=== PATIENT | female | born 1965 | race Two or more races ===

== ENCOUNTER 2025-07-11 18:48 | Emergency (ER) | payer MEDICAID ==
--- NOTE | 2025-07-11 19:36 | ED.PDOC ---
GI ASSESSMENT HPI Comments 59-year-old female came to ER for abdominal pain. Patient states she has been experiencing right-sided abdominal pain since last night, radiating to the back, associated with nausea. Denies any history of abdominal surgeries Chief Complaint: Abdominal Pain Time Seen by MD: 19:34 Reviewed Notes: Nurses Notes Allergies: Coded Allergies: NO KNOWN ALLERGIES (Unverified , 07/11/25) Home Meds Active Scripts Sulfamethoxazole W/Trimethopri (Bactrim Ds Tablet) 1 Tab Tb, 1 TAB PO BID for 7 Days, #14 TAB Prov:ALONA YE MD 07/11/25 Gabapentin (Gabapentin) 300 Mg Cap, 300 MG PO Q6HP PRN, #60 CAP Prov:ALONA YE MD 07/11/25 Ondansetron Odt 4MG Tab (ZOFRAN PO) 4 Mg Tb, 4 MG PO Q6HP PRN, #30 TAB ODT TAB-DISSOLVE IN MOUTH, THEN SWALLOW Prov:ALONA YE MD 07/11/25 Metformin Hydrochloride (Metformin Hcl) 1,000 Mg Tab, 1 TAB PO BID for 90 Days, #180 TAB 5 Refills Prov:ALONA YE MD 07/11/25 Information Source: Patient Mode of Arrival: Wheelchair Timing: Hours Duration: Intermittent Past Medical History PAST MEDICAL HISTORY: Denies Surgical History: Denies all surgeries REGISTERED DENTAL ASSISTANT History: Denies all REGISTERED DENTAL ASSISTANT Hx Family History Family History: Reviewed,noncontributory to illness Social History Smoker: Non-Smoker Alcohol: Denies ETOH Use Drugs: Denies Drug Use Lives In: Home Constitutional: denies: chills, diaphoresis, fatigue, fever, malaise, sweats, weakness, others EENTM: denies: blurred vision, double vision, ear bleeding, ear discharge, ear drainage, ear pain, ear ringing, eye pain, eye redness, hearing loss, mouth pain, mouth swelling, nasal discharge, nose bleeding, nose congestion, nose pain, photophobia, tearing, throat pain, throat swelling, voice changes, others Respiratory: denies: cough, hemoptysis, orthopnea, SOB at rest, shortness of breath, SOB with excertion, stridor, wheezing, others Cardiovascular: denies: chest pain, dizzy spells, diaphoresis, Dyspnea on exertion, edema, irregular heart beat, left arm pain, lightheadedness, palpitations, PND, syncope, others Gastrointestinal: reports: abdominal pain, nausea; denies: abdomen distended, blood streaked bowels, constipated, diarrhea, dysphagia, difficulty swallowing, hematemesis, melena, poor appetite, poor fluid intake, rectal bleeding, rectal pain, vomiting, others Genitourinary: denies: abnormal vagina bleeding, burning, dyspareunia, dysuria, flank pain, frequency, hematuria, incontinence, pain, , vagina discharge, urgency, others Neurological: denies: dizziness, fainting, headache, left sided numbness, left sided weakness, numbness, paresthesia, pre-existing deficit, right sided numbness, right sided weakness, seizure, speech problems, tingling, tremors, weakness, others Musculoskeletal: denies: back pain, gout, joint pain, joint swelling, muscle pain, muscle stiffness, neck pain, others Integumetry: denies: bruises, change in color, change in hair/nails, dryness, laceration, lesions, lumps, rash, wounds, others Allergic/Immunocompromised: denies: Difficulty Healing, Frequent Infections, Hives, Itching, others Hematologic/Lymphatic: denies: anemia, blood clots, easy bleeding, easy bruising, swollen glands, others Endocrine: denies: excessive hunger, excessive sweating, excessive thirst, excessive urination, flushing, intolerance to cold, intolerance to heat, unexplained weight gain, unexplained weight loss, others Psychiatric: denies: anxiety, bipolar disorder, depression, hopeless, panic disorder, schizophrenia, sleepless, suicidal, others Physical Exam General Appearance: No Apparent Distress, Normal HEENT: Normal ENT Inspection, Pharynx Normal, TMs Normal Neck: Full Range of Motion, Non-Tender, Normal, Normal Inspection Respiratory: Chest Non-Tender, Lungs Clear, No Accessory Muscle Use, No Respiratory Distress, Normal Breath Sounds Cardiovascular: No Edema, No JVD, No Murmur, No Gallop, Normal Peripheral Pulses, Regular Rate/Rhythm Breast Exam: Deferred Gastrointestinal: No Organomegaly, No Pulsatile Mass, Normal Bowel Sounds, RUQ, Soft, Tenderness Genitalia: Deferred Pelvic: Deferred Rectal: Deferred Extremities: No calf tenderness, Normal capillary refill, Normal inspection, Normal range of motion, Non-tender, No pedal edema Musculoskeletal : Apperance: Normal Neurologic: Alert, balance truing inspector II-XII nml as Tested, No Motor Deficits, Normal Affect, Normal Mood, No Sensory Deficits Cerebellar Function: Normal Reflexes: Normal Skin: Dry, Normal Color, Warm Lymphatic: No Adenopathy Was a procedure done? Was a procedure done?: No GI differential Dx Differential Diagnosis: Constipation, Diverticular disease, Gastritis/PUD, Gastroenteritis, Pancreatitis, UTI, Urolithiasis X-Ray, Labs, Meds, VS Vital Signs Date Time Temp Pulse Resp B/P (MAP) Pulse Ox O2 Delivery O2 Flow Rate FiO2 07/11/25 22:25 98.0 69 18 99/65 (76) 98 98.0 07/11/25 19:03 98 07/11/25 18:49 98.2 109 18 115/70 95 98.2 Lab Test 07/11/25 22:57 07/11/25 22:19 07/11/25 19:33 07/11/25 19:08 Range/Units Urine Color Colorless Yellow Urine Clarity Turbid H Clear Urine pH 5.5 5.0-9.0 Urine Specific [place] 1.025 1.001-1.035 Urine Protein Trace H Negative Urine Ketones Negative Negative Urine Blood 2+ H Negative /uL Urine Nitrite 2+ H Negative Urine Bilirubin Negative Negative Urine Urobilinogen Normal Negative mg/dL Urine Leukocyte Esterase 3+ Negative /uL Urine RBC 24 0 - 4 /hpf Urine WBC Clumps Present None Seen /hpf Urine Microscopic WBC 465 H 0-5 /HPF Urine Squamous Epithelial Cells Few <5 /hpf Urine Bacteria None seen None Seen /hpf Urine Yeast (Budding) Few None Seen /hpf Urine Glucose 4+ H Normal mg/dL POC Glucose 257 H 313 H 70-106 mg/dl White Blood Count 11.0 H 4.4-10.8 10^3/uL Red Blood Count 4.96 4.0-5.20 10^6/uL Hemoglobin 15.5 12.2-16.2 g/dL Hematocrit 44.8 36.0-46.0 % Mean Corpuscular Volume 90.3 80.0-100.0 fL Mean Corpuscular Hemoglobin 31.3 28.0-32.0 pg Mean Corpuscular Hemoglobin Concent 34.7 32.0-36.0 g/dL Red Cell Distribution Width 13.7 11.8-14.3 % Platelet Count 201 140-450 10^3/uL Mean Platelet Volume 8.9 6.9-10.8 fL Neutrophils (%) (Auto) 64.4 37.0-80.0 % Lymphocytes (%) (Auto) 24.5 10.0-50.0 % Monocytes (%) (Auto) 10.1 0.0-12.0 % Eosinophils (%) (Auto) 0.5 0.0-7.0 % Basophils (%) (Auto) 0.5 0.0-2.0 % Neutrophils # (Auto) 7.1 1.6-8.6 10 ^3/uL Lymphocytes # (Auto) 2.7 0.4-5.4 10 ^3/uL Monocytes # (Auto) 1.1 0-1.3 10 ^3/uL Eosinophils # (Auto) 0 0-0.8 10 ^3/uL Basophils # (Auto) 0.1 0-0.2 10 ^3/uL Nucleated Red Blood Cells 0.1 % Sodium Level 133 L 136-145 mmol/L Potassium Level 4.0 3.5-5.1 mmol/L Chloride Level 93 L 98-107 mmol/L Carbon Dioxide Level 27 20-31 mmol/L Anion Gap 13 5-15 Blood Urea Nitrogen 12 9-23 mg/dL Creatinine 0.80 0.550-1.02 mg/dL Glomerular Filtration Rate Calc 85 >90 mL/min BUN/Creatinine Ratio 15.0 10.0-20.0 Serum Glucose 291 H 74-106 mg/dL Calcium Level 9.1 8.7-10.4 mg/dL Total Bilirubin 0.5 0.2-1.0 mg/dL Aspartate Amino Transferase (AST) 18 13-40 U/L Alanine Aminotransferase (ALT) 29 7-40 U/L Alkaline Phosphatase 185 H 46-116 U/L Total Protein 7.3 5.7-8.2 g/dL Albumin 4.1 3.2-4.8 g/dL Lipase 28 12-53 U/L Current Medications Medications (Trade) Dose Ordered Sig/Roxi Route Start Time Stop Time Status Last Admin Insulin Human Regular (InsuLIN R) 2 units ONCE ONCE SC 07/11/25 21:30 07/11/25 21:32 DC 07/11/25 22:20 Procedure: XY ACUTE AB SERIES Exam Date: 07/11/2025 08:42 PM History: abd pain Comparison Study: None Technique: AP of the chest AP upright of the abdomen AP supine of the abdomen FINDINGS: No focal evidence of airspace disease. The cardiomediastinal silhouette is within normal limits. No acute osseous lesions. Nonobstructive bowel gas pattern noted. There is no evidence for pneumoperitoneum. No abnormal calcifications noted. 2 radiopaque foreign bodies over the left iliac bone correlate clinically. IMPRESSION: 1. Non-specific gas-filled loops of bowel. 2. 2 radiopaque foreign bodies of the lower left abdomen correlate clinically. 3. Chest x-ray supine film of the abdomen. A true abdominal series includes upright abdomen. This may be replace with the lateral decubitus film of the abdomen. Time of 1ST Reevaluation: 19:32 Reevaluation 1ST: Unchanged Patient Education/Counseling: Diagnosis, Treatment Family Education/Counseling: Diagnosis, Treatment SEPSIS Sepsis Screen Date sepsis recognized/suspect: Jul 11, 2025 Time Sepsis recognized/suspect: 1849 Recent Procedure: No On Antibiotic Therapy: No Respiratory Rate >20: No Heart Rate >90: Yes Temp<36 C (96.8 F) or >38.3 C: No SBP <90 or MAP <65 mmHG: No New Acute Mental Status Change: No Is the patient on CPAP, BIPAP,: No Physician Orders Electrocardigram (07/11/25 19:11) Acute Ab Series (07/11/25 19:27) Vital Signs Date Time Temp Pulse Resp B/P (MAP) Pulse Ox O2 Delivery O2 Flow Rate FiO2 07/11/25 22:25 98.0 69 18 99/65 (76) 98 98.0 07/11/25 19:03 98 07/11/25 18:49 98.2 109 18 115/70 95 98.2 Laboratory Tests Test 07/11/25 19:33 White Blood Count 11.0 10^3/uL (4.4-10.8) H Medications Medications Dose Ordered Sig/Roxi Route Start Time Stop Time Status Last Admin Dose Admin Insulin Human Regular 2 units ONCE ONCE SC 07/11/25 21:30 07/11/25 21:32 DC 07/11/25 22:20 Departure 1 Departure Time of Disposition: 21:00 Impression: Primary Impression: Type 2 diabetes mellitus with hyperglycemia Additional Impression: Abdominal pain Disposition: HOME / SELF CARE / HOMELESS Condition: Stable e-Prescriptions Sulfamethoxazole W/Trimethopri (Bactrim Ds Tablet) 1 Tab Tb 1 TAB PO BID for 7 Days, #14 TAB Prov: ALONA YE MD 07/11/25 Gabapentin (Gabapentin) 300 Mg Cap 300 MG PO Q6HP PRN, #60 CAP Prov: ALONA YE MD 07/11/25 Ondansetron Odt 4MG Tab (ZOFRAN PO) 4 Mg Tb 4 MG PO Q6HP PRN, #30 TAB ODT TAB-DISSOLVE IN MOUTH, THEN SWALLOW Prov: ALONA YE MD 07/11/25 Metformin Hydrochloride (Metformin Hcl) 1,000 Mg Tab 1 TAB PO BID for 90 Days, #180 TAB 5 Refills Prov: ALONA YE MD 07/11/25 Discharged With: Self Critical Care Note Critical Care Time?: No Stability Stability form required: No Heart Score Heart Score: Heart Score Response (Comments) Value History N/A 0 EKG N/A 0 Age N/A 0 Risk Factors N/A 0 Troponin N/A 0 Total 0 I personally scribed for ALONA YE MD ([email or web address]) on 07/11/25 at 19:36. Electronically submitted by Gerson Cunningham ([email or web address]). I personally scribed for ALONA YE MD ([email or web address]) on 07/11/25 at 21:24. Electronically submitted by Gerson Cunningham ([email or web address]). ALONA YE MD Jul 11, 2025 19:36
--- NOTE | 2025-07-11 19:38 | ECG ---
[facility] Test Date: 2025-07-11 Test Time: 19:03:47 Pat Name: MARTHA QUINTERO Department: Room: Gender: F [employer]: NEIL : 1965 Requested By: ALONA YE Order Number: [id number] Reading MD: Dawson Bales Measurements Intervals [place] Rate: 98 P: 51 KS: 152 QRS: -34 QRSD: 78 T: 61 QT: 351 QTc: 449 Interpretive Statements Sinus rhythm Probable left atrial enlargement Left axis deviation ST elevation, consider inferior injury Electronically Signed On 07-11-2025 22:23:38 PDT by Dawson Bales Please click the below link to view image of tracing.
[2025-07-11 20:10] LABS: Hematocrit 44.8 % (36.0-46.0); Hemoglobin 15.5 g/dL (12.2-16.2); Mean Corpuscular Hemoglobin 31.3 pg (28.0-32.0); Mean Corpuscular Volume 90.3 fL (80.0-100.0); Nucleated Red Blood Cells % 0.1 %
[2025-07-11 20:35] LABS: Alanine Aminotransferase 29 U/L (7-40); Albumin 4.1 g/dL (3.2-4.8); Alkaline Phosphatase 185 U/L (46-116); Anion Gap 13 (5-15); BUN/Creatinine Ratio 15.0 (10.0-20.0); Blood Urea Nitrogen 12 mg/dL (9-23); Calcium 9.1 mg/dL (8.7-10.4); Carbon Dioxide 27 mmol/L (20-31); Chloride 93 mmol/L (98-107); Glucose 291 mg/dL (74-106); Lipase 28 U/L (12-53); Potassium 4.0 mmol/L (3.5-5.1); Sodium 133 mmol/L (136-145); Total Protein 7.3 g/dL (5.7-8.2)
[2025-07-11 20:36] LABS: Bilirubin, Total 0.5 mg/dL (0.2-1.0)
--- NOTE | 2025-07-11 21:21 | DVH ---
Procedure: XY ACUTE AB SERIES Exam Date: 07/11/2025 08:42 PM History: abd pain Comparison Study: None Technique: AP of the chest AP upright of the abdomen AP supine of the abdomen FINDINGS: No focal evidence of airspace disease. The cardiomediastinal silhouette is within normal limits. No acute osseous lesions. Nonobstructive bowel gas pattern noted. There is no evidence for pneumoperitoneum. No abnormal calcif ications noted. 2 radiopaque foreign bodies over the left iliac bone correlate clinically. IMPRESSION: 1. Non-specific gas-filled loops of bowel. 2. 2 radiopaque foreign bodies of the lower left abdomen correlate clinically. 3. Chest x-ray supine film of the abdomen. A true abdominal series includes upright abdomen. This may be replace with the lateral decubitus film of the abdomen. HS:Y
[2025-07-11] MEDS ORDERED: ZOFR4T PO (21:35)
[2025-07-11] MEDS ORDERED: GABA-1250 PO (21:35)
[2025-07-11] MEDS ORDERED: METF-372 PO (21:35)
[2025-07-11] MEDS: InsuLIN REG 1unit/0.01ml Soln (100units/ml) SC ONE (22:20)
[2025-07-11 22:25] VITALS: BP 99/65; PULSE 69; RESP 18; TEMP 98; O2SAT 98
[2025-07-11 23:07] LABS: Urine Budding Yeast FEW /hpf (None Seen); Urine Protein, UAD TRACE (Negative); Urine WBC Clumps PRESENT /hpf (None Seen)
[2025-07-11] MEDS ORDERED: BACDST PO (23:22)
[2025-07-11] MEDS ORDERED: SULFAMETHOX W/TRIMETH(800/160MG) DS TAB PO ONE (23:30)
== END 2025-07-11 22:28 | disposition home or self-care (01) ==
LOC: ER 18:48
DX: E11.65 Type 2 diabetes mellitus with hyperglycemia (principal); R10.9 Unspecified abdominal pain; Z79.84 Long term (current) use of oral hypoglycemic drugs; Z79.899 Other long term (current) drug therapy
CPT/HCPCS: 36415; 74022; 80053; 81001; 82947; 83690; 85025; 93005; 96372; 99285; J1815; 82962

== ENCOUNTER 2025-07-22 15:00 | Inpatient (IN) | payer MEDICAID ==
[~2025-07-22] VITALS: Ht 154.9 cm; Wt 65.6 kg
[~2025-07-22 15:00] MED LIST: BACDST PO; GABA-1250 PO; METF-372 PO; ZOFR4T PO
--- NOTE | 2025-07-22 15:53 | ED.PDOC ---
General HPI Comments 69y F who presents to the ED for chief complaint of urinary complaints. Pt presents with son who states pt has been having increased urinary urgency and frequency with associated vomiting chills and bilateral flank pain. Pt states she was seen at on 07/12 and dx with UTI and given medications and discharged. Pt still having urinary complaints and came to the ED for evaluation. Pt has noted temp of 1002. 1 F with heart rate 134 with otherwise stable vitals. Pt otherwise denies any other symptoms. Time Seen by MD: 15:50 Reviewed notes: Medications, Allergies Allergies: Coded Allergies: NO KNOWN ALLERGIES (Unverified , 07/11/25) Home Meds Active Scripts Sulfamethoxazole W/Trimethopri (Bactrim Ds Tablet) 1 Tab Tb, 1 TAB PO BID for 7 Days, #14 TAB Prov:ALONA YE MD 07/11/25 Gabapentin (Gabapentin) 300 Mg Cap, 300 MG PO Q6HP PRN, #60 CAP Prov:ALONA YE MD 07/11/25 Ondansetron Odt 4MG Tab (ZOFRAN PO) 4 Mg Tb, 4 MG PO Q6HP PRN, #30 TAB ODT TAB-DISSOLVE IN MOUTH, THEN SWALLOW Prov:ALONA YE MD 07/11/25 Metformin Hydrochloride (Metformin Hcl) 1,000 Mg Tab, 1 TAB PO BID for 90 Days, #180 TAB 5 Refills Prov:ALONA YE MD 07/11/25 Information Source: Patient, Relative Mode of Arrival: Wheelchair Brought in by: pt son Severity: Moderate Timing: Days Duration: Since onset Prehospital treatment: None Past Medical History PAST MEDICAL HISTORY: DM Surgical History: Denies all surgeries [employer] History: Denies all [employer] Hx Family History Family History: Reviewed,noncontributory to illness Social History Smoker: Non-Smoker Alcohol: Denies ETOH Use Drugs: Denies Drug Use Lives In: Home Constitutional: reports: chills; denies: diaphoresis, fatigue, fever, malaise, sweats, weakness, others EENTM: denies: blurred vision, double vision, ear bleeding, ear discharge, ear drainage, ear pain, ear ringing, eye pain, eye redness, hearing loss, mouth pain, mouth swelling, nasal discharge, nose bleeding, nose congestion, nose pain, photophobia, tearing, throat pain, throat swelling, voice changes, others Respiratory: denies: cough, hemoptysis, orthopnea, SOB at rest, shortness of breath, SOB with excertion, stridor, wheezing, others Cardiovascular: denies: chest pain, dizzy spells, diaphoresis, Dyspnea on exertion, edema, irregular heart beat, left arm pain, lightheadedness, palpitations, PND, syncope, others Gastrointestinal: reports: nausea, vomiting; denies: abdomen distended, abdominal pain, blood streaked bowels, constipated, diarrhea, dysphagia, difficulty swallowing, hematemesis, melena, poor appetite, poor fluid intake, rectal bleeding, rectal pain, others Genitourinary: reports: flank pain; denies: abnormal vagina bleeding, burning, dyspareunia, dysuria, frequency, hematuria, incontinence, pain, , vagina discharge, urgency, others Neurological: denies: dizziness, fainting, headache, left sided numbness, left sided weakness, numbness, paresthesia, pre-existing deficit, right sided numbness, right sided weakness, seizure, speech problems, tingling, tremors, weakness, others Musculoskeletal: denies: back pain, gout, joint pain, joint swelling, muscle pain, muscle stiffness, neck pain, others Integumetry: denies: bruises, change in color, change in hair/nails, dryness, laceration, lesions, lumps, rash, wounds, others Allergic/Immunocompromised: denies: Difficulty Healing, Frequent Infections, Hives, Itching, others Hematologic/Lymphatic: denies: anemia, blood clots, easy bleeding, easy bruising, swollen glands, others Endocrine: denies: excessive hunger, excessive sweating, excessive thirst, excessive urination, flushing, intolerance to cold, intolerance to heat, unexplained weight gain, unexplained weight loss, others Psychiatric: denies: anxiety, bipolar disorder, depression, hopeless, panic disorder, schizophrenia, sleepless, suicidal, others All Other Systems: Reviewed and Negative Physical Exam General Appearance: No Apparent Distress, Normal HEENT: Normal ENT Inspection, Pharynx Normal, TMs Normal Neck: Full Range of Motion, Non-Tender, Normal, Normal Inspection Respiratory: Chest Non-Tender, Lungs Clear, No Accessory Muscle Use, No Respiratory Distress, Normal Breath Sounds Cardiovascular: No Edema, No JVD, No Murmur, No Gallop, Normal Peripheral Pulses, Regular Rate/Rhythm Breast Exam: Deferred Gastrointestinal: No Organomegaly, Non Tender, No Pulsatile Mass, Normal Bowel Sounds, Soft Genitalia: Deferred Pelvic: Tender w/ Cerv. Motion, Other (bilateral CVA tenderness to palpation) Rectal: Deferred Extremities: No calf tenderness, Normal capillary refill, Normal inspection, Normal range of motion, Non-tender, No pedal edema Musculoskeletal : Apperance: Normal Neurologic: Alert, vc++ developer II-XII nml as Tested, No Motor Deficits, Normal Affect, Normal Mood, No Sensory Deficits Cerebellar Function: Normal Reflexes: Normal Skin: Dry, Normal Color, Warm Lymphatic: No Adenopathy Was a procedure done? Was a procedure done?: No Differential Diagnosis Kidney stone (Female): Cholelithiasis, DJD, Musculoskeletal pain, Strain, Urolithiasis Urinary Problem (Female): PID, Pyelonephritis, UTI, Other (recurrent UTI, urosepsis, hydronephrosis) X-Ray, Labs, Meds, VS Vital Signs Date Time Temp Pulse Resp B/P (MAP) Pulse Ox O2 Delivery O2 Flow Rate FiO2 07/22/25 15:02 102.1 134 18 132/63 94 102.1 Lab Test 07/22/25 15:59 Range/Units White Blood Count 15.4 H 4.4-10.8 10^3/uL Red Blood Count 4.52 4.0-5.20 10^6/uL Hemoglobin 13.9 12.2-16.2 g/dL Hematocrit 40.7 36.0-46.0 % Mean Corpuscular Volume 90.2 80.0-100.0 fL Mean Corpuscular Hemoglobin 30.8 28.0-32.0 pg Mean Corpuscular Hemoglobin Concent 34.1 32.0-36.0 g/dL Red Cell Distribution Width 13.1 11.8-14.3 % Platelet Count 299 140-450 10^3/uL Mean Platelet Volume 8.0 6.9-10.8 fL Neutrophils (%) (Auto) 89.2 H 37.0-80.0 % Lymphocytes (%) (Auto) 5.9 L 10.0-50.0 % Monocytes (%) (Auto) 4.4 0.0-12.0 % Eosinophils (%) (Auto) 0.1 0.0-7.0 % Basophils (%) (Auto) 0.4 0.0-2.0 % Neutrophils # (Auto) 13.8 H 1.6-8.6 10 ^3/uL Lymphocytes # (Auto) 0.9 0.4-5.4 10 ^3/uL Monocytes # (Auto) 0.7 0-1.3 10 ^3/uL Eosinophils # (Auto) 0 0-0.8 10 ^3/uL Basophils # (Auto) 0.1 0-0.2 10 ^3/uL Nucleated Red Blood Cells 0.0 % Sodium Level 130 L 136-145 mmol/L Potassium Level 4.6 3.5-5.1 mmol/L Chloride Level 94 L 98-107 mmol/L Carbon Dioxide Level 22 20-31 mmol/L Anion Gap 14 5-15 Blood Urea Nitrogen 20 9-23 mg/dL Creatinine 1.12 H 0.550-1.02 mg/dL Glomerular Filtration Rate Calc 54 >90 mL/min BUN/Creatinine Ratio 17.9 10.0-20.0 Serum Glucose 441 *H 74-106 mg/dL Lactic Acid Level 4.3 *H 0.4-2.0 mmol/L Calcium Level 8.0 L 8.7-10.4 mg/dL Total Bilirubin 0.4 0.2-1.0 mg/dL Aspartate Amino Transferase (AST) 34 13-40 U/L Alanine Aminotransferase (ALT) 32 7-40 U/L Alkaline Phosphatase 179 H 46-116 U/L Total Protein 6.2 5.7-8.2 g/dL Albumin 3.4 3.2-4.8 g/dL X-Ray, Labs, Meds, VS Comment Concerns of urosepsis Patient be started on 1 L in his bolus Patient is started on Zosyn and vancomycin Recommend hospitalization due to failed outpatient treatment of urinary tract infection Patient currently hemodynamically stable Labs reviewed by this provider, prior visit reviewed by this provider Time of 1ST Reevaluation: 16:20 Reevaluation 1ST: Unchanged Patient Education/Counseling: Diagnosis, Treatment Family Education/Counseling: Diagnosis, Treatment SEPSIS Sepsis Screen Date sepsis recognized/suspect: Jul 22, 2025 Time Sepsis recognized/suspect: 1505 Recent Procedure: No On Antibiotic Therapy: No Respiratory Rate >20: No Heart Rate >90: Yes Temp<36 C (96.8 F) or >38.3 C: Yes SBP <90 or MAP <65 mmHG: No New Acute Mental Status Change: No Is the patient on CPAP, BIPAP,: No Physician Orders Ct Ab Pel Wo Con-No Oral Or Iv (07/22/25 15:34) Blood Culture (07/22/25 15:34) Piperacillin-Tazob 3.375gm (Zosyn 3.375g (07/22/25 16:45) Ondansetron Hcl (Zofran) (07/22/25 16:45) Vancomycin 1gm/250ml Kit (07/22/25 16:45) Urinalysis (07/22/25 16:48) Vital Signs Date Time Temp Pulse Resp B/P (MAP) Pulse Ox O2 Delivery O2 Flow Rate FiO2 07/22/25 15:02 102.1 134 18 132/63 94 102.1 Laboratory Tests Test 07/22/25 15:59 Lactic Acid Level 4.3 mmol/L (0.4-2.0) *H White Blood Count 15.4 10^3/uL (4.4-10.8) H Departure 1 Departure Time of Disposition: 16:49 Impression: Primary Impression: Urinary tract infection Qualified Codes: N30.01 - Acute cystitis with hematuria Additional Impression: Elevated lactic acid level Disposition: ADMITTED INPATIENT Condition: Stable Critical Care Note Critical Care Time?: No Stability Stability form required: No Heart Score Heart Score: Heart Score Response (Comments) Value History N/A 0 EKG N/A 0 Age N/A 0 Risk Factors N/A 0 Troponin N/A 0 Total 0 I personally scribed for VERNON ROMANP (NINA) on 07/22/25 at 15:53. Electronically submitted by Shannan Monaco ([facility] [place] [facility] I personally scribed for VERNON ROMANP (NINA) on 07/22/25 at 16:10. Electronically submitted by Shannan Monaco ([email or web address]). VERNON ROMAN Jul 22, 2025 15:53
--- NOTE | 2025-07-22 16:13 | DVH ---
Indication: flank pain Technique: CT axial images of the abdomen and pelvis are obtained without contrast. Coronal and sagit kylee reformats were obtained. Radiation Dose Information: CTDI volume is 21.22 mGy. Dose-length product is 3.65 mGy*cm Comparison: None FINDINGS: There is limited interpretation of the abdomen and pelvis without administration of intravenous contr ast. Lung bases demonstrate no pleural effusion. Borderline cardiomegaly. Adrenal glands, spleen unremarkable in shape. Fatty infiltration of the pancreas. Liver unremarkabl e in shape. Cholelithiasis. The bilateral kidneys demonstrate mild bilateral hydroureteronephrosis. No obstructing calculus is i dentified. Stomach partially distended. Small bowel loops are normal in caliber. Moderate volume stool in the colon. Normal appendix. Abdominal aortic tortuosity, Atherosclerotic disease. Bladder distention. No free pelvic fluid. No i nguinal lymphadenopathy. [id number] bilateral sacroiliac degenerative joint disease. No aggressive osseous process. IMPRESSION: Limited evaluation without contrast. Mild bilateral hydroureteronephrosis which may be secondary to underlying marked bladder distention. No obstructing calculus identified. Atherosclerotic disease. Moderate volume stool in the colon. Other findings as described
[2025-07-22 16:19] LABS: Hematocrit 40.7 % (36.0-46.0); Hemoglobin 13.9 g/dL (12.2-16.2); Mean Corpuscular Hemoglobin 30.8 pg (28.0-32.0); Mean Corpuscular Volume 90.2 fL (80.0-100.0); Nucleated Red Blood Cells % 0.0 %
[2025-07-22 16:36] LABS: Alanine Aminotransferase 32 U/L (7-40); Albumin 3.4 g/dL (3.2-4.8); Anion Gap 14 (5-15); BUN/Creatinine Ratio 17.9 (10.0-20.0); Bilirubin, Total 0.4 mg/dL (0.2-1.0); Blood Urea Nitrogen 20 mg/dL (9-23); Carbon Dioxide 22 mmol/L (20-31); Potassium 4.6 mmol/L (3.5-5.1); Total Protein 6.2 g/dL (5.7-8.2)
[2025-07-22 16:43] LABS: Alkaline Phosphatase 179 U/L (46-116); Calcium 8.0 mg/dL (8.7-10.4); Chloride 94 mmol/L (98-107); Glucose 441 mg/dL (74-106); Lactic Acid w/Reflex 4.3 mmol/L (0.4-2.0); Sodium 130 mmol/L (136-145)
[2025-07-22] MEDS ORDERED: ONDANSETRON HCL 4 MG/2 ML VIAL IV PRN (19:45)
[2025-07-22] MEDS ORDERED: DEXTROSE (50%) 50ML SYRG IV PRN (19:45)
[2025-07-22] MEDS: ONDANSETRON HCL 4 MG/2 ML VIAL IV ONE (20:33)
[2025-07-22] MEDS: VANCOMYCIN 1GM/250ML KIT 250 ML IV ONE (20:34)
[2025-07-22] MEDS: ACETAMINOPHEN 325 MG TAB PO ONE (20:35)
[2025-07-22 20:50] VITALS: PULSE 87; RESP 18; O2SAT 95
[2025-07-22 21:00] VITALS: BP 92/50; PULSE 94; RESP 16; TEMP 98.1; O2SAT 94
--- NOTE | 2025-07-22 22:01 | DVHHP2 ---
History of Present Illness Reason for Visit: Urinary complaints History of Present Illness 69-year-old female presents for evaluation of urinary complaints. Patient reports a two week history of intermittent urinary complaints including dysuria, urinary frequency and also fever and chills. Denies abdominal pain, nausea or vomiting. No other acute symptoms. Past Medical History Diabetes mellitus Past Surgical History Denies Family History Noncontributory Smoke: No ALCOHOL: none Drugs: None Lives: with Family Review of Systems Review of Systems Review of systems are currently negative otherwise addressed in HPI. Allergies: Coded Allergies: NO KNOWN ALLERGIES (Unverified , 07/11/25) Medications Current Medications Medications Dose Ordered Sig/Roxi Route Start Time Stop Time Status Last Admin Dose Admin Diagnostic Test (Pha) 1 strip ACHS 07/22/25 22:00 Insulin Human Regular ACHS SC 07/22/25 22:00 Dextrose 50 ml UD PRN IV 07/22/25 19:45 Acetaminophen/ Hydrocodone Bitart 1 tab Q4HP PRN PO 07/22/25 19:45 Ondansetron HCl 4 mg Q4HP PRN IV 07/22/25 19:45 Acetaminophen 650 mg Q6HP PRN PO 07/22/25 19:45 Exam Vital Signs Vital Signs Date Time Temp Pulse Resp B/P (MAP) Pulse Ox O2 Delivery O2 Flow Rate FiO2 07/22/25 20:50 87 18 95 Room Air* 0 21 07/22/25 20:10 98.2 84/50 (61) 98.2 Exam Gen: 69-year-old female in mild distress. Skin: Warm, dry, normal color and texture, no rash. HEENT: Normocephalic atraumatic, mucous membranes moist and pink. Neck: Cervical and supraclavicular nodes normal without enlargement, trachea is midline, thyroid gland is normal without masses. Pulmonary: Clear to auscultation and percussion bilaterally. Cardiac: Regular rate and rhythm. No murmur Abdomen: Soft, nontender, nondistended, bowel sounds present all 4 quadrants, no guarding, no rigidity, no organomegaly. Extremities: No cyanosis, clubbing, no edema Neuro: Cranial nerves II through XII grossly intact, normal affect and speech, no focal motor deficits. Labs/Xrays ORDERING PHYSICIAN: VERNON ROMAN PROCEDURE(s): ABPL - CT AB PEL WO CON-NO ORAL OR IV REASON: flank pain ORDER NUMBER(s): [id number], ACCESSION NUMBER(s): [id number] Indication: flank pain Technique: CT axial images of the abdomen and pelvis are obtained without contrast. Coronal and sagittal reformats were obtained. Radiation Dose Information: CTDI volume is 21.22 mGy. Dose-length product is 3.65 mGy*cm Comparison: None FINDINGS: There is limited interpretation of the abdomen and pelvis without administration of intravenous contrast. Lung bases demonstrate no pleural effusion. Borderline cardiomegaly. Adrenal glands, spleen unremarkable in shape. Fatty infiltration of the pancreas. Liver unremarkable in shape. Cholelithiasis. The bilateral kidneys demonstrate mild bilateral hydroureteronephrosis. No obstructing calculus is identified. Stomach partially distended. Small bowel loops are normal in caliber. Moderate volume stool in the colon. Normal appendix. Abdominal aortic tortuosity, Atherosclerotic disease. Bladder distention. No free pelvic fluid. No inguinal lymphadenopathy. Cmpt-go-[id number] bilateral sacroiliac degenerative joint disease. No aggressive osseous process. IMPRESSION: Limited evaluation without contrast. Mild bilateral hydroureteronephrosis which may be secondary to underlying marked bladder distention. No obstructing calculus identified. Atherosclerotic disease. Moderate volume stool in the colon. Other findings as described Labs Test 07/22/25 17:52 07/22/25 15:59 Range/Units Lactic Acid Level 2.5 *H 0.4-2.0 mmol/L White Blood Count 15.4 H 4.4-10.8 10^3/uL Red Blood Count 4.52 4.0-5.20 10^6/uL Hemoglobin 13.9 12.2-16.2 g/dL Hematocrit 40.7 36.0-46.0 % Mean Corpuscular Volume 90.2 80.0-100.0 fL Mean Corpuscular Hemoglobin 30.8 28.0-32.0 pg Mean Corpuscular Hemoglobin Concent 34.1 32.0-36.0 g/dL Red Cell Distribution Width 13.1 11.8-14.3 % Platelet Count 299 140-450 10^3/uL Mean Platelet Volume 8.0 6.9-10.8 fL Neutrophils (%) (Auto) 89.2 H 37.0-80.0 % Lymphocytes (%) (Auto) 5.9 L 10.0-50.0 % Monocytes (%) (Auto) 4.4 0.0-12.0 % Eosinophils (%) (Auto) 0.1 0.0-7.0 % Basophils (%) (Auto) 0.4 0.0-2.0 % Neutrophils # (Auto) 13.8 H 1.6-8.6 10 ^3/uL Lymphocytes # (Auto) 0.9 0.4-5.4 10 ^3/uL Monocytes # (Auto) 0.7 0-1.3 10 ^3/uL Eosinophils # (Auto) 0 0-0.8 10 ^3/uL Basophils # (Auto) 0.1 0-0.2 10 ^3/uL Nucleated Red Blood Cells 0.0 % Sodium Level 130 L 136-145 mmol/L Potassium Level 4.6 3.5-5.1 mmol/L Chloride Level 94 L 98-107 mmol/L Carbon Dioxide Level 22 20-31 mmol/L Anion Gap 14 5-15 Blood Urea Nitrogen 20 9-23 mg/dL Creatinine 1.12 H 0.550-1.02 mg/dL Glomerular Filtration Rate Calc 54 >90 mL/min BUN/Creatinine Ratio 17.9 10.0-20.0 Serum Glucose 441 *H 74-106 mg/dL Calcium Level 8.0 L 8.7-10.4 mg/dL Total Bilirubin 0.4 0.2-1.0 mg/dL Aspartate Amino Transferase (AST) 34 13-40 U/L Alanine Aminotransferase (ALT) 32 7-40 U/L Alkaline Phosphatase 179 H 46-116 U/L Total Protein 6.2 5.7-8.2 g/dL Albumin 3.4 3.2-4.8 g/dL SEPSIS Sepsis Screen Date sepsis recognized/suspect: Jul 22, 2025 Time Sepsis recognized/suspect: 1505 Recent Procedure: No On Antibiotic Therapy: No Respiratory Rate >20: No Heart Rate >90: Yes Temp<36 C (96.8 F) or >38.3 C: Yes SBP <90 or MAP <65 mmHG: No New Acute Mental Status Change: No Is the patient on CPAP, BIPAP,: No Physician Orders Ct Ab Pel Wo Con-No Oral Or Iv (07/22/25 15:34) Blood Culture (07/22/25 15:34) Ondansetron Hcl (Zofran) (07/22/25 16:45) Urinalysis (07/22/25 16:48) Communication Order (07/22/25:31) Consistent Carb(Ccho)Diabetes (07/23/25 Breakfast) Urine Bacterial Culture (07/22/25:31) Basic Metabolic Panel (07/23/25 04:00) Glucose Blood (Accu-Chek Comfort Curve T (07/22/25 22:00) Insulin R (Human) (Insulin R) (07/22/25 22:00) Dextrose 50% Syringe (07/22/25 19:45) Admit (07/22/25:) Hydrocodone-Acet 5/325mg Tab ([place] 5/32 (07/22/25 19:45) Ondansetron Hcl (Zofran) (07/22/25 19:45) Complete Blood Count (07/23/25 04:00) Condition: Stable (07/22/25:31) Acetaminophen Tablet (Tylenol Tablet) (07/22/25 19:45) Bedrest With Bathroom Privileg (07/22/25:31) Vital Signs Date Time Temp Pulse Resp B/P (MAP) Pulse Ox O2 Delivery O2 Flow Rate FiO2 07/22/25 20:50 87 18 95 Room Air* 0 21 07/22/25 20:10 98.2 102 18 84/50 (61) 95 98.2 07/22/25 15:02 102.1 134 18 132/63 94 102.1 Laboratory Tests Test 07/22/25 15:59 07/22/25 17:52 Lactic Acid Level 4.3 mmol/L (0.4-2.0) *H 2.5 mmol/L (0.4-2.0) *H White Blood Count 15.4 10^3/uL (4.4-10.8) H Medications Medications Dose Ordered Sig/Roxi Route Start Time Stop Time Status Last Admin Dose Admin Acetaminophen 650 mg ONCE ONCE PO 07/22/25 15:15 07/22/25 15:16 DC 07/22/25 20:35 650 MG Ondansetron HCl 4 mg ONCE ONCE IV 07/22/25 16:45 07/22/25 16:46 DC 07/22/25 20:33 4 MG Vancomycin HCl 250 ml @ 250 mls/hr ONCE ONCE IV 07/22/25 16:45 07/22/25 17:44 DC 07/22/25 20:34 250 MLS/HR Assessment/Plan Assessment/Plan Assessment Sepsis Acute pyelonephritis Diabetes mellitus Acute kidney injury Leukocytosis Plan Admit the patient to Med surge to the hospitalist Maintenance IV fluids Rocephin Urine bacterial culture pending Resume home medications Continue treatment per orders. Plan discussed with: Patient My Orders Orders - SANTA HURST Procedure Category Date Status Time Communication Order ORDERS 07/22/25 Transmitted 19:31 Consistent DIET 07/23/25 Transmitted Carb(Ccho)Diabetes Breakfast Urine Bacterial BLAIR 07/22/25 Logged Culture 19:31 Basic Metabolic Panel LAB 07/23/25 Verified 04:00 Glucose Blood PHA 07/22/25 In Process (Accu-Chek Comfort 22:00 Insulin R (Human) PHA 07/22/25 In Process (Insulin R) 22:00 Dextrose 50% Syringe PHA 07/22/25 In Process 19:45 Admit ADMIT 07/22/25 Transmitted 19:31 Hydrocodone-Acet PHA 07/22/25 In Process 5/325mg Tab ([place] 19:45 Ondansetron Hcl PHA 07/22/25 In Process (Zofran) 19:45 Complete Blood Count LAB 07/23/25 Verified 04:00 Condition: Stable MARC 07/22/25 In Process 19:31 Acetaminophen Tablet PHA 07/22/25 In Process (Tylenol Tablet) 19:45 Bedrest With Bathroom MARC 07/22/25 In Process Privileg 19:31 Date of Service: Jul 22, 2025 Billing Provider: SANTA HURST Common Visit Codes: [id number] INP/OBS CARE (HIGH) SANTA HURST Jul 22, 2025 22:01
[2025-07-22] MEDS: PIPERACILLIN-TAZOB 3.375GM 100 ML IV ONE (22:02)
[2025-07-22] MEDS: SODIUM CHLORIDE 0.9% 1,000 ML IV ONE (22:03)
[2025-07-23] VITALS (9 sets, daily range): BP systolic 82–116; BP diastolic 47–66; PULSE 71–97; RESP 16–22; TEMP 97.4–99.1; O2SAT 92–100
[2025-07-23] MEDS: ACCU-CHEK COMFORT CURVE STRIP VI SCH (00:49)
[2025-07-23] MEDS: InsuLIN REG 1unit/0.01ml Soln (100units/ml) SC SCH (00:51)
[2025-07-23 04:43] LABS: Anion Gap 11 (5-15); Carbon Dioxide 28 mmol/L (20-31); Potassium 3.6 mmol/L (3.5-5.1)
[2025-07-23 04:45] LABS: Hematocrit 40.7 % (36.0-46.0); Hemoglobin 14.3 g/dL (12.2-16.2); Mean Corpuscular Hemoglobin 31.3 pg (28.0-32.0); Mean Corpuscular Volume 89.4 fL (80.0-100.0); Nucleated Red Blood Cells % 0.1 %
[2025-07-23 04:46] LABS: Calcium 8.6 mg/dL (8.7-10.4); Chloride 97 mmol/L (98-107); Sodium 136 mmol/L (136-145)
[2025-07-23 04:49] LABS: BUN/Creatinine Ratio 13.7 (10.0-20.0); Blood Urea Nitrogen 18 mg/dL (9-23)
[2025-07-23 04:50] LABS: Glucose 253 mg/dL (74-106)
[2025-07-23] MEDS: ACETAMINOPHEN 325 MG TAB PO PRN (06:01)
[2025-07-23 09:45] LABS: Urine Protein, UAD 1+ (Negative); Urine WBC Clumps PRESENT /hpf (None Seen)
[2025-07-23] MEDS ORDERED: LOSA-535 PO (17:49)
--- NOTE | 2025-07-23 18:00 | DVHPN2 ---
Subjective 69-year-old female with a known history of diabetes mellitus type 2, hypertension, presented to the hospital with a fevers chills burning urination increased frequency found to have sepsis secondary to urinary tract infection. Changes from previous H/P or p: No Changes Objective Vitals Vital Signs Date Time Temp Pulse Resp B/P (MAP) Pulse Ox O2 Delivery O2 Flow Rate FiO2 07/23/25 13:00 98.0 80 18 95/65 (75) 96 98.0 07/22/25 20:50 Room Air* 0 21 Exam HEENT pupils are reactive Neck is supple CV is S1-S2 regular rate and rhythm Respiratory diminished breath sounds bases GI positive bowel sound Extremity no edema [employer] no motor deficit Medications Current Medications Medications Dose Ordered Sig/Roxi Route Start Time Stop Time Status Last Admin Dose Admin Diagnostic Test (Pha) 1 strip ACHS 07/22/25 22:00 07/23/25 17:21 1 STRIP Insulin Human Regular ACHS SC 07/22/25 22:00 07/23/25 13:10 6 UNITS Dextrose 50 ml UD PRN IV 07/22/25 19:45 Acetaminophen/ Hydrocodone Bitart 1 tab Q4HP PRN PO 07/22/25 19:45 Ondansetron HCl 4 mg Q4HP PRN IV 07/22/25 19:45 Acetaminophen 650 mg Q6HP PRN PO 07/22/25 19:45 07/23/25 06:01 650 MG Ceftriaxone Sodium 50 ml @ 100 mls/hr DAILY@09 IV 07/23/25 09:00 07/23/25 12:37 100 MLS/HR Laboratory Results Laboratory Tests 07/23/25 03:36 Chemistry Test 07/23/25 03:36 Calcium Level 8.6 mg/dL (8.7-10.4) L Urinalysis Test 07/23/25 09:20 Urine Color Yellow (Yellow) Urine Clarity Ex.turbid (Clear) Urine pH 5.5 (5.0-9.0) Urine Specific [place] 1.016 (1.001-1.035) Urine Protein 1+ (Negative) H Urine Ketones Negative (Negative) Urine Blood 3+ /uL (Negative) H Urine Nitrite 2+ (Negative) H Urine Bilirubin Negative (Negative) Urine Urobilinogen Normal mg/dL (Negative) Urine Leukocyte Esterase 3+ /uL (Negative) Urine RBC 48 /hpf (0 - 4) Urine WBC Clumps Present /hpf (None Seen) Urine Microscopic WBC 2911 /HPF (0-5) H Urine Squamous Epithelial Cells Few /hpf (<5) Urine Bacteria None seen /hpf (None Seen) Urine Glucose 4+ mg/dL (Normal) H Microbiology Microbiology Date/Time Source Procedure Growth Status 07/22/25 15:59 Blood Blood Culture - Preliminary NO GROWTH AFTER 24 HOURS OF INCUBATION. Resulted Assessment/Plan Assessment/Plan 69-year-old female with a known history of diabetes mellitus type 2, hypertension presented to the hospital with a symptomatic urinary tract infection found to have 1. Sepsis secondary to urinary tract infection 2. Acute pyelonephritis with a complicated UTI 3. Bilateral hydroureteronephrosis with a urinary retention 4. Fevers chills dysuria secondary to symptomatic UTI 5. Leukocytosis likely reactive 6. Diabetes mellitus type 2 7. Hypertension -continue IV antibiotics follow up urine culture blood cultures, Plan discussed with: Patient Date of Service: Jul 23, 2025 Billing Provider: NELL CASEY MD Common Visit Codes: [id number] INP/OBS CARE(HIGH) NELL CASEY MD Jul 23, 2025 17:59
[2025-07-23] MEDS ORDERED: EMPA1TAB5 PO (19:34)
[2025-07-23] MEDS: HYDROcodone-ACET 5/325MG TAB PO PRN (21:16)
[2025-07-23] MEDS ORDERED: VANCOMYCIN PER PHARMACY 0 MG IV SCH (23:00)
[2025-07-24] MEDS: VANCOMYCIN 1GM/200ML PM 200 ML IV ONE (00:08)
[2025-07-24 01:00] VITALS: BP 96/58; PULSE 92; RESP 19; TEMP 98.2; O2SAT 93
[2025-07-24 05:00] VITALS: BP 106/63; PULSE 81; RESP 20; TEMP 98.2; O2SAT 92
[2025-07-24 09:00] VITALS: BP 103/67; PULSE 74; RESP 17; TEMP 98; O2SAT 94
[2025-07-24] MEDS: VANCOMYCIN 1GM/250ML KIT 250 ML IV ONE (09:19)
[2025-07-24 13:00] VITALS: BP 115/78; PULSE 76; RESP 17; TEMP 98.3
--- NOTE | 2025-07-24 15:46 | DVHPN2 ---
Subjective 69-year-old female with a known history of diabetes mellitus type 2, hypertension, presented to the hospital with a fevers chills burning urination increased frequency found to have sepsis secondary to urinary tract infection. Changes from previous H/P or p: No Changes Objective Vitals Vital Signs Date Time Temp Pulse Resp B/P (MAP) Pulse Ox O2 Delivery O2 Flow Rate FiO2 07/24/25 13:00 98.3 76 17 115/78 (90) 98.3 07/24/25 09:00 94 07/24/25 08:00 Room Air* 0 21 Intake/Output Intake and Output 07/24/25 07:00 Intake Total 1150 ml Balance 1150 ml Intake Oral 1150 ml # Voids 5 Exam HEENT pupils are reactive Neck is supple CV is S1-S2 regular rate and rhythm Respiratory diminished breath sounds bases GI positive bowel sound Extremity no edema [employer] no motor deficit Medications Current Medications Medications Dose Ordered Sig/Roxi Route Start Time Stop Time Status Last Admin Dose Admin Diagnostic Test (Pha) 1 strip ACHS 07/22/25 22:00 07/24/25 11:23 1 STRIP Insulin Human Regular ACHS SC 07/22/25 22:00 07/24/25 11:23 6 UNITS Dextrose 50 ml UD PRN IV 07/22/25 19:45 Acetaminophen/ Hydrocodone Bitart 1 tab Q4HP PRN PO 07/22/25 19:45 07/23/25 21:16 1 TAB Ondansetron HCl 4 mg Q4HP PRN IV 07/22/25 19:45 Acetaminophen 650 mg Q6HP PRN PO 07/22/25 19:45 07/23/25 06:01 650 MG Ceftriaxone Sodium 50 ml @ 100 mls/hr DAILY@09 IV 07/23/25 09:00 07/24/25 09:19 100 MLS/HR Vancomycin HCl 0 ml @ 0 mls/hr UD IV 07/23/25 23:00 Vancomycin HCl 250 ml @ 250 mls/hr Q16H IV 07/24/25 16:00 Empaglifozin 25 mg DAILY PO 07/25/25 10:00 UNV Losartan Potassium 100 mg DAILY PO 07/25/25 10:00 UNV Gabapentin 300 mg BID PO 07/24/25 22:00 UNV Laboratory Results Laboratory Tests 07/23/25 03:36 07/24/25 11:48 Urinalysis Test 07/23/25 09:20 Urine Color Yellow (Yellow) Urine Clarity Ex.turbid (Clear) Urine pH 5.5 (5.0-9.0) Urine Specific [place] 1.016 (1.001-1.035) Urine Protein 1+ (Negative) H Urine Ketones Negative (Negative) Urine Blood 3+ /uL (Negative) H Urine Nitrite 2+ (Negative) H Urine Bilirubin Negative (Negative) Urine Urobilinogen Normal mg/dL (Negative) Urine Leukocyte Esterase 3+ /uL (Negative) Urine RBC 48 /hpf (0 - 4) Urine WBC Clumps Present /hpf (None Seen) Urine Microscopic WBC 2911 /HPF (0-5) H Urine Squamous Epithelial Cells Few /hpf (<5) Urine Bacteria None seen /hpf (None Seen) Urine Glucose 4+ mg/dL (Normal) H Microbiology Microbiology Date/Time Source Procedure Growth Status 07/23/25 09:20 Voided Urine Urine Culture - Preliminary Resulted 07/22/25 15:59 Blood Blood Culture - Preliminary Resulted Assessment/Plan Assessment/Plan 69-year-old female with a known history of diabetes mellitus type 2, hypertension presented to the hospital with a symptomatic urinary tract infection found to have 1. Sepsis secondary to urinary tract infection 2. Acute pyelonephritis with a complicated UTI 3. Bilateral hydroureteronephrosis with a urinary retention 4. Fevers chills dysuria secondary to symptomatic UTI 5. Leukocytosis likely reactive 6. Diabetes mellitus type 2 7. Hypertension 8. Gram negative bacteremia, repeat blood cultures -continue IV antibiotics follow up urine culture blood cultures, Plan discussed with: Patient, Daughter My Orders Orders - NELL CASEY MD Procedure Category Date Status Time Blood Culture BLAIR 07/24/25 In Process 11:20 Empagliflozin PHA 07/25/25 Logged (Jardiance) 10:00 Losartan Tablet PHA 07/25/25 Logged (Cozaar Tablet) 10:00 Gabapentin Capsule PHA 07/24/25 Logged (Neurontin Capsule) 22:00 Gabapentin Capsule PHA 07/24/25 In Process (Neurontin Capsule) 15:45 Date of Service: Jul 24, 2025 Billing Provider: NELL CASEY MD Common Visit Codes: [id number] INP/OBS CARE(HIGH) NELL CASEY MD Jul 24, 2025 15:46
[2025-07-24] MEDS: VANCOMYCIN 1GM/250ML KIT 250 ML IV SCH (16:11)
[2025-07-24] MEDS: GABAPENTIN 300 MG CAP PO ONE (16:11)
[2025-07-24 17:00] VITALS: BP 109/69; PULSE 71; RESP 18; TEMP 98.8; O2SAT 94
[2025-07-24 21:00] VITALS: BP 105/59; PULSE 83; RESP 17; TEMP 100.8; O2SAT 93
[2025-07-24] MEDS: GABAPENTIN 300 MG CAP PO SCH (22:49)
[2025-07-25 01:00] VITALS: BP 112/75; PULSE 81; RESP 17; TEMP 98.7; O2SAT 92
[2025-07-25 05:00] VITALS: BP 113/74; PULSE 76; RESP 18; TEMP 98.1; O2SAT 92
[2025-07-25 09:00] VITALS: BP 101/59; PULSE 75; RESP 18; TEMP 98.1; O2SAT 95
[2025-07-25] MEDS: EMPAGLIFLOZIN 10 MG TAB PO SCH (09:29)
[2025-07-25] MEDS: LOSARTAN POTASSIUM 50 MG TAB PO SCH (09:37)
[2025-07-25 13:00] VITALS: BP 113/81; PULSE 79; RESP 20; TEMP 98.3; O2SAT 96
--- NOTE | 2025-07-25 13:55 | DVHPN2 ---
Reviewed: Care Plan, H&P, Labs, Medications, Previous Orders, Radiology Changes from previous H/P or p: No Changes Objective Vitals Vital Signs Date Time Temp Pulse Resp B/P (MAP) Pulse Ox O2 Delivery O2 Flow Rate FiO2 07/25/25 09:00 98.1 75 18 101/59 (73) 95 98.1 07/25/25 08:00 Room Air* 0 21 Intake/Output Intake and Output 07/25/25 07:00 Intake Total 1900 ml Balance 1900 ml Intake Oral 1600 ml IV Total 300 ml # Voids 4 Medications Current Medications Medications Dose Ordered Sig/Roxi Route Start Time Stop Time Status Last Admin Dose Admin Diagnostic Test (Pha) 1 strip ACHS 07/22/25 22:00 07/25/25 11:22 1 STRIP Insulin Human Regular ACHS SC 07/22/25 22:00 07/25/25 11:24 8 UNITS Dextrose 50 ml UD PRN IV 07/22/25 19:45 Acetaminophen/ Hydrocodone Bitart 1 tab Q4HP PRN PO 07/22/25 19:45 07/23/25 21:16 1 TAB Ondansetron HCl 4 mg Q4HP PRN IV 07/22/25 19:45 Acetaminophen 650 mg Q6HP PRN PO 07/22/25 19:45 07/23/25 06:01 650 MG Ceftriaxone Sodium 50 ml @ 100 mls/hr DAILY@09 IV 07/23/25 09:00 07/25/25 11:22 100 MLS/HR Vancomycin HCl 0 ml @ 0 mls/hr UD IV 07/23/25 23:00 Vancomycin HCl 250 ml @ 250 mls/hr Q16H IV 07/24/25 16:00 07/25/25 08:16 250 MLS/HR Empaglifozin 25 mg DAILY PO 07/25/25 10:00 07/25/25 09:29 25 MG Losartan Potassium 100 mg DAILY PO 07/25/25 10:00 Gabapentin 300 mg BID PO 07/24/25 22:00 07/25/25 09:26 300 MG Laboratory Results Laboratory Tests 07/23/25 03:36 07/25/25 05:41 Urinalysis Test 07/23/25 09:20 Urine Color Yellow (Yellow) Urine Clarity Ex.turbid (Clear) Urine pH 5.5 (5.0-9.0) Urine Specific [place] 1.016 (1.001-1.035) Urine Protein 1+ (Negative) H Urine Ketones Negative (Negative) Urine Blood 3+ /uL (Negative) H Urine Nitrite 2+ (Negative) H Urine Bilirubin Negative (Negative) Urine Urobilinogen Normal mg/dL (Negative) Urine Leukocyte Esterase 3+ /uL (Negative) Urine RBC 48 /hpf (0 - 4) Urine WBC Clumps Present /hpf (None Seen) Urine Microscopic WBC 2911 /HPF (0-5) H Urine Squamous Epithelial Cells Few /hpf (<5) Urine Bacteria None seen /hpf (None Seen) Urine Glucose 4+ mg/dL (Normal) H Microbiology Microbiology Date/Time Source Procedure Growth Status 07/24/25 11:48 Blood Blood Culture - Preliminary NO GROWTH AFTER 24 HOURS OF INCUBATION. Resulted 07/23/25 09:20 Voided Urine Urine Culture - Final Complete Assessment/Plan Assessment/Plan Covering for Dr. Christianson 1. Sepsis secondary to urinary tract infection 2. Acute pyelonephritis with complicated UTI 3. Bilateral hydroureteronephrosis with urinary retention 4. Fevers chills dysuria secondary to symptomatic UTI 5. Leukocytosis likely reactive 6. Diabetes mellitus type 2 7. Hypertension 8. Gram negative bacteremia, repeat blood cultures -continue IV antibiotics follow up urine culture blood cultures, Time Spent 50 minutes Advanced care planning time 20 minutes Patient is full code Plan discussed with: Patient Date of Service: Jul 25, 2025 Billing Provider: MARILU HOOD MD Common Visit Codes: [id number] INP/OBS CARE(HIGH) Secondary Visit Codes: [id number] CARE PLAN 30 MINUTES MARILU HOOD MD Jul 25, 2025 13:55
[2025-07-25 17:00] VITALS: BP 132/77; PULSE 86; RESP 18; TEMP 98.3; O2SAT 96
[2025-07-25 21:00] VITALS: BP 109/61; PULSE 78; RESP 20; TEMP 97.6; O2SAT 92
[2025-07-26] VITALS (7 sets, daily range): BP systolic 104–133; BP diastolic 56–86; PULSE 76–95; RESP 18–20; TEMP 97.6–99.6; O2SAT 77–96
--- NOTE | 2025-07-26 08:08 | DVHPN2 ---
Reviewed: Care Plan, H&P, Labs, Medications, Previous Orders, Radiology Changes from previous H/P or p: No Changes Objective Vitals Vital Signs Date Time Temp Pulse Resp B/P (MAP) Pulse Ox O2 Delivery O2 Flow Rate FiO2 07/26/25 04:57 97.6 76 20 118/73 (88) 95 97.6 07/25/25 20:00 Room Air* 0 21 Intake/Output Intake and Output 07/26/25 07:00 Intake Total 2250 ml Output Total 1000 ml Balance 1250 ml Intake Oral 1700 ml IV Total 550 ml Output Urine Total 1000 ml # Voids 2 Medications Current Medications Medications Dose Ordered Sig/Roxi Route Start Time Stop Time Status Last Admin Dose Admin Diagnostic Test (Pha) 1 strip ACHS 07/22/25 22:00 07/26/25 06:45 1 STRIP Insulin Human Regular ACHS SC 07/22/25 22:00 07/26/25 06:51 4 UNITS Dextrose 50 ml UD PRN IV 07/22/25 19:45 Acetaminophen/ Hydrocodone Bitart 1 tab Q4HP PRN PO 07/22/25 19:45 07/23/25 21:16 1 TAB Ondansetron HCl 4 mg Q4HP PRN IV 07/22/25 19:45 Acetaminophen 650 mg Q6HP PRN PO 07/22/25 19:45 07/23/25 06:01 650 MG Ceftriaxone Sodium 50 ml @ 100 mls/hr DAILY@09 IV 07/23/25 09:00 07/25/25 11:22 100 MLS/HR Vancomycin HCl 0 ml @ 0 mls/hr UD IV 07/23/25 23:00 Vancomycin HCl 250 ml @ 250 mls/hr Q16H IV 07/24/25 16:00 07/26/25 00:10 250 MLS/HR Empaglifozin 25 mg DAILY PO 07/25/25 10:00 07/25/25 09:29 25 MG Losartan Potassium 100 mg DAILY PO 07/25/25 10:00 Gabapentin 300 mg BID PO 07/24/25 22:00 07/25/25 23:09 300 MG Laboratory Results Laboratory Tests 07/23/25 03:36 07/26/25 05:29 Urinalysis Test 07/23/25 09:20 Urine Color Yellow (Yellow) Urine Clarity Ex.turbid (Clear) Urine pH 5.5 (5.0-9.0) Urine Specific [place] 1.016 (1.001-1.035) Urine Protein 1+ (Negative) H Urine Ketones Negative (Negative) Urine Blood 3+ /uL (Negative) H Urine Nitrite 2+ (Negative) H Urine Bilirubin Negative (Negative) Urine Urobilinogen Normal mg/dL (Negative) Urine Leukocyte Esterase 3+ /uL (Negative) Urine RBC 48 /hpf (0 - 4) Urine WBC Clumps Present /hpf (None Seen) Urine Microscopic WBC 2911 /HPF (0-5) H Urine Squamous Epithelial Cells Few /hpf (<5) Urine Bacteria None seen /hpf (None Seen) Urine Glucose 4+ mg/dL (Normal) H Microbiology Microbiology Date/Time Source Procedure Growth Status 07/24/25 11:48 Blood Blood Culture - Preliminary NO GROWTH AFTER 24 HOURS OF INCUBATION. Resulted 07/23/25 09:20 Voided Urine Urine Culture - Final Complete Labs and/or images reviewed: Labs reviewed by me, Image(s) reviewed by me Assessment/Plan Assessment/Plan Covering for Dr. Christianson 1. Sepsis secondary to urinary tract infection 2. Acute pyelonephritis with complicated UTI 3. Bilateral hydroureteronephrosis with urinary retention 4. Fevers chills dysuria secondary to symptomatic UTI 5. Leukocytosis likely reactive 6. Diabetes mellitus type 2 7. Hypertension 8. Gram negative bacteremia, repeat blood cultures negative -patient feels better and wants to go home Time Spent 50 minutes Advanced care planning time 20 minutes Patient is full code Plan discussed with: Patient Date of Service: Jul 26, 2025 Billing Provider: MARILU HOOD MD Common Visit Codes: [id number] INP/OBS CARE(HIGH) MARILU HOOD MD Jul 26, 2025 08:08
[2025-07-26] MEDS ORDERED: CIPR-173 PO (08:10)
--- NOTE | 2025-07-26 08:16 | DVHDS2 ---
Discharge Summary Date of Admission Jul 22, 2025 at 19:31 Date of Discharge: Jul 26, 2025 Admitting Diagnosis Urinary tract infection Wounds: None Labs/Diagnostic Data: Laboratory Results Test 07/26/25 06:43 07/26/25 05:29 07/25/25 22:45 07/24/25 11:48 POC Glucose 223 mg/dl (70-106) Creatinine 0.67 mg/dL (0.550-1.02) Glomerular Filtration Rate Calc 95 mL/min (>90) Vancomycin Level Trough 18.0 ug/mL (5-10) Random Vancomycin Level 14.4 ug/mL (5-10) Test 07/23/25 09:20 07/23/25 03:36 07/22/25 17:52 07/22/25 15:59 Urine Color Yellow (Yellow) Urine Clarity Ex.turbid (Clear) Urine pH 5.5 (5.0-9.0) Urine Specific [place] 1.016 (1.001-1.035) Urine Protein 1+ (Negative) Urine Ketones Negative (Negative) Urine Blood 3+ /uL (Negative) Urine Nitrite 2+ (Negative) Urine Bilirubin Negative (Negative) Urine Urobilinogen Normal mg/dL (Negative) Urine Leukocyte Esterase 3+ /uL (Negative) Urine RBC 48 /hpf (0 - 4) Urine WBC Clumps Present /hpf (None Seen) Urine Microscopic WBC 2911 /HPF (0-5) Urine Squamous Epithelial Cells Few /hpf (<5) Urine Bacteria None seen /hpf (None Seen) Urine Glucose 4+ mg/dL (Normal) White Blood Count 15.2 10^3/uL (4.4-10.8) Red Blood Count 4.56 10^6/uL (4.0-5.20) Hemoglobin 14.3 g/dL (12.2-16.2) Hematocrit 40.7 % (36.0-46.0) Mean Corpuscular Volume 89.4 fL (80.0-100.0) Mean Corpuscular Hemoglobin 31.3 pg (28.0-32.0) Mean Corpuscular Hemoglobin Concent 35.1 g/dL (32.0-36.0) Red Cell Distribution Width 13.3 % (11.8-14.3) Platelet Count 297 10^3/uL (140-450) Mean Platelet Volume 8.5 fL (6.9-10.8) Neutrophils (%) (Auto) 76.2 % (37.0-80.0) Lymphocytes (%) (Auto) 17.3 % (10.0-50.0) Monocytes (%) (Auto) 5.7 % (0.0-12.0) Eosinophils (%) (Auto) 0.4 % (0.0-7.0) Basophils (%) (Auto) 0.4 % (0.0-2.0) Neutrophils # (Auto) 11.6 10 ^3/uL (1.6-8.6) Lymphocytes # (Auto) 2.6 10 ^3/uL (0.4-5.4) Monocytes # (Auto) 0.9 10 ^3/uL (0-1.3) Eosinophils # (Auto) 0.1 10 ^3/uL (0-0.8) Basophils # (Auto) 0.1 10 ^3/uL (0-0.2) Nucleated Red Blood Cells 0.1 % Sodium Level 136 mmol/L (136-145) Potassium Level 3.6 mmol/L (3.5-5.1) Chloride Level 97 mmol/L (98-107) Carbon Dioxide Level 28 mmol/L (20-31) Anion Gap 11 (5-15) Blood Urea Nitrogen 18 mg/dL (9-23) BUN/Creatinine Ratio 13.7 (10.0-20.0) Serum Glucose 253 mg/dL (74-106) Calcium Level 8.6 mg/dL (8.7-10.4) Lactic Acid Level 2.5 mmol/L (0.4-2.0) Total Bilirubin 0.4 mg/dL (0.2-1.0) Aspartate Amino Transferase (AST) 34 U/L (13-40) Alanine Aminotransferase (ALT) 32 U/L (7-40) Alkaline Phosphatase 179 U/L (46-116) Total Protein 6.2 g/dL (5.7-8.2) Albumin 3.4 g/dL (3.2-4.8) Other Laboratory Tests 07/26/25 05:29 07/23/25 03:36 Brief Hx & Hospital Course: Patient was originally taken care of by Dr. Christianson Patient admitted for sepsis secondary to urinary tract infection pyelonephritis and bilateral hydronephrosis with urinary retention. Hydronephrosis secondary to urinary retention no calculi. Treated with the Rocephin and vancomycin blood cultures came positive for Gram-negative rods repeat blood cultures came negative at the time of discharge patient is alert awake oriented x3 stable vital signs and requesting to go home. Prescription for Cipro transmitted to the pharmacy. Consults/Reason for consult None Operations or Procedures None Condition at Discharge: Fair Final Diagnosis/Problems List Covering for Dr. Christianson 1. Sepsis secondary to urinary tract infection 2. Acute pyelonephritis with complicated UTI 3. Bilateral hydroureteronephrosis with urinary retention 4. Fevers chills dysuria secondary to symptomatic UTI 5. Leukocytosis likely reactive 6. Diabetes mellitus type 2 7. Hypertension 8. Gram negative bacteremia, repeat blood cultures negative Discharge Disposition: Home Discharge Instruct/Medications Diet: Regular Activity: Light activity Follow Up/Referral: Follow up with the primary Dr Medications: Cipro Transmitted to pharmacy Scheduled Ciprofloxacin Hcl (Cipro), 1 TAB PO BID Losartan Potassium (Losartan Potassium), 1 TAB PO DAILY, (Reported) Metformin Hydrochloride (Metformin Hcl), 1 TAB PO BID Scheduled PRN Gabapentin (Gabapentin), 300 MG PO Q6HP PRN Ondansetron Odt 4MG Tab (Zofran Po), 4 MG PO Q6HP PRN Miscellaneous Medications Empagliflozin-Linagliptin (Glyxambi 25-5 mg), 1 TAB PO, (Reported) 39 (Time taken for discharge summary 39 minutes) Discharge Statement: "Patient was advised to return to the ER or call 911 if any headaches, dizziness, shortness of breath, chest pain, abdominal pain, bleeding, fevers, or worsening of medical condition. Patient was counseled about treatment plan, medications, possible side effects, patientverbalized understanding. All questions were answered to the best of my ability. This discharge took greater then 30 minutes in planning, reviewing documentation, counseling the patient, and discussing with other team members." ASSESSMENT ASSESSMENT Hospital Course Improved Assessment Covering for Dr. Christianson 1. Sepsis secondary to urinary tract infection 2. Acute pyelonephritis with complicated UTI 3. Bilateral hydroureteronephrosis with urinary retention 4. Fevers chills dysuria secondary to symptomatic UTI 5. Leukocytosis likely reactive 6. Diabetes mellitus type 2 7. Hypertension 8. Gram negative bacteremia, repeat blood cultures negative Date of Service: Jul 26, 2025 Billing Provider: MARILU HOOD MD Common Visit Codes: [id number] DISCH DAY >30min MARILU HOOD MD Jul 26, 2025 08:16
[2025-07-26] MEDS: ERTAPENEM SOD INJ 1 GM in SODIUM CHL 0.9% 50 ML IV ONE (11:19)
[2025-07-26] MEDS ORDERED: DEXTROSE (50%) 50ML SYRG IV PRN (16:45)
[2025-07-26] MEDS: InsuLIN REG 1unit/0.01ml Soln (100units/ml) SC SCH ×2 (17:00→22:32)
[2025-07-26] MEDS: ACCU-CHEK COMFORT CURVE STRIP VI SCH (17:00)
[2025-07-27 01:00] VITALS: BP 124/81; PULSE 86; RESP 16; TEMP 98.5; O2SAT 93
[2025-07-27 04:56] VITALS: BP 114/73; PULSE 83; RESP 18; TEMP 99.2; O2SAT 92
--- NOTE | 2025-07-27 08:46 | DVHPN2 ---
Reviewed: Care Plan, H&P, Labs, Medications, Previous Orders, Radiology Changes from previous H/P or p: No Changes Objective Vitals Vital Signs Date Time Temp Pulse Resp B/P (MAP) Pulse Ox O2 Delivery O2 Flow Rate FiO2 07/27/25 04:56 99.2 83 18 114/73 (87) 92 99.2 07/26/25 20:00 Room Air* 0 21 Intake/Output Intake and Output 07/27/25 07:00 Intake Total 1300 ml Balance 1300 ml Intake Oral 1000 ml IV Total 300 ml # Voids 6 Medications Current Medications Medications Dose Ordered Sig/Roxi Route Start Time Stop Time Status Last Admin Dose Admin Dextrose 50 ml UD PRN IV 07/22/25 19:45 Cancel Acetaminophen/ Hydrocodone Bitart 1 tab Q4HP PRN PO 07/22/25 19:45 07/23/25 21:16 1 TAB Ondansetron HCl 4 mg Q4HP PRN IV 07/22/25 19:45 Acetaminophen 650 mg Q6HP PRN PO 07/22/25 19:45 07/23/25 06:01 650 MG Ceftriaxone Sodium 50 ml @ 100 mls/hr DAILY@09 IV 07/23/25 09:00 07/27/25 08:29 100 MLS/HR Vancomycin HCl 0 ml @ 0 mls/hr UD IV 07/23/25 23:00 Vancomycin HCl 250 ml @ 250 mls/hr Q16H IV 07/24/25 16:00 07/27/25 08:32 250 MLS/HR Empaglifozin 25 mg DAILY PO 07/25/25 10:00 07/27/25 08:32 25 MG Losartan Potassium 100 mg DAILY PO 07/25/25 10:00 07/26/25 09:08 100 MG Gabapentin 300 mg BID PO 07/24/25 22:00 07/27/25 08:32 300 MG Ertapenem 1 gm/ Sodium Chloride 50 ml @ 100 mls/hr DAILY IV 07/27/25 10:00 Diagnostic Test (Pha) 1 strip ACHS 07/26/25 17:00 07/27/25 06:23 1 STRIP Insulin Human Regular AC SC 07/26/25 17:00 07/27/25 06:22 4 UNITS Insulin Human Regular HS SC 07/26/25 22:00 07/26/25 22:32 6 UNITS Dextrose 50 ml UD PRN IV 07/26/25 16:45 Laboratory Results Laboratory Tests 07/23/25 03:36 07/26/25 05:29 Urinalysis Test 07/23/25 09:20 Urine Color Yellow (Yellow) Urine Clarity Ex.turbid (Clear) Urine pH 5.5 (5.0-9.0) Urine Specific [place] 1.016 (1.001-1.035) Urine Protein 1+ (Negative) H Urine Ketones Negative (Negative) Urine Blood 3+ /uL (Negative) H Urine Nitrite 2+ (Negative) H Urine Bilirubin Negative (Negative) Urine Urobilinogen Normal mg/dL (Negative) Urine Leukocyte Esterase 3+ /uL (Negative) Urine RBC 48 /hpf (0 - 4) Urine WBC Clumps Present /hpf (None Seen) Urine Microscopic WBC 2911 /HPF (0-5) H Urine Squamous Epithelial Cells Few /hpf (<5) Urine Bacteria None seen /hpf (None Seen) Urine Glucose 4+ mg/dL (Normal) H Microbiology Microbiology Date/Time Source Procedure Growth Status 07/24/25 11:48 Blood Blood Culture - Preliminary NO GROWTH AFTER 48 HOURS OF INCUBATION. Resulted 07/23/25 09:20 Voided Urine Urine Culture - Final Complete Labs and/or images reviewed: Labs reviewed by me, Image(s) reviewed by me Assessment/Plan Assessment/Plan Covering for Dr. Christianson 1. Sepsis secondary to urinary tract infection 2. Acute pyelonephritis with complicated UTI : Urine cultures growing ESBL E coli: DC vancomycin and Rocephin start Invanz 1 g IV daily for two weeks 3. Bilateral hydroureteronephrosis with urinary retention 4. Fevers chills dysuria secondary to symptomatic UTI 5. Leukocytosis likely reactive 6. Diabetes mellitus type 2 7. Hypertension 8. Gram negative bacteremia, repeat blood cultures negative -patient feels better and wants to go home Discharge canceled as urine showing ESBL E coli and started on Invanz [place] [phone] at bedside Patient only has emergency Medi-[facility] Plan discussed with: Patient My Orders Orders - MARILU HOOD MD Procedure Category Date Status Time Ertapenem Sod Inj PHA 07/27/25 In Process (Invanz) 10:00 Communication Order ORDERS 07/26/25 Transmitted 10:07 Glucose Blood PHA 07/26/25 In Process (Accu-Chek Comfort 17:00 Insulin R (Human) PHA 07/26/25 In Process (Insulin R) 17:00 Insulin R (Human) PHA 07/26/25 In Process (Insulin R) 22:00 Dextrose 50% Syringe PHA 07/26/25 In Process 16:45 Date of Service: Jul 27, 2025 Billing Provider: MARILU HOOD MD Common Visit Codes: [id number] INP/OBS CARE(HIGH) MARILU HOOD MD Jul 27, 2025 08:46
[2025-07-27 08:54] VITALS: BP 98/62; PULSE 78; RESP 12; TEMP 98; O2SAT 96
[2025-07-27] MEDS: ERTAPENEM SOD INJ 1 GM in SODIUM CHL 0.9% 50 ML IV SCH (08:58)
[2025-07-27 13:00] VITALS: BP 100/58; PULSE 68; RESP 16; TEMP 97.5; O2SAT 94
[2025-07-27 16:34] VITALS: BP 112/72; PULSE 93; RESP 14; TEMP 98; O2SAT 94
[2025-07-27 20:00] VITALS: BP 92/52; PULSE 82; RESP 18; TEMP 98.2; O2SAT 93
[2025-07-27] MEDS: LACTULOSE 20Gm/30ML SOLN PO PRN (23:30)
[2025-07-28] VITALS (7 sets, daily range): BP systolic 99–133; BP diastolic 59–81; PULSE 71–88; RESP 16–20; TEMP 97.1–97.6; O2SAT 93–98
--- NOTE | 2025-07-28 09:31 | DVHPN2 ---
Reviewed: Care Plan, H&P, Labs, Medications, Previous Orders, Radiology Changes from previous H/P or p: No Changes Objective Vitals Vital Signs Date Time Temp Pulse Resp B/P (MAP) Pulse Ox O2 Delivery O2 Flow Rate FiO2 07/28/25 09:21 129/79 07/28/25 08:40 97.2 71 16 93 97.2 07/28/25 07:55 Room Air* 0 21 Intake/Output Intake and Output 07/28/25 07:00 Intake Total 950 ml Balance 950 ml Intake Oral 880 ml IV Total 70 ml # Voids 8 Medications Current Medications Medications Dose Ordered Sig/Roxi Route Start Time Stop Time Status Last Admin Dose Admin Dextrose 50 ml UD PRN IV 07/22/25 19:45 Cancel Acetaminophen/ Hydrocodone Bitart 1 tab Q4HP PRN PO 07/22/25 19:45 07/23/25 21:16 1 TAB Ondansetron HCl 4 mg Q4HP PRN IV 07/22/25 19:45 Acetaminophen 650 mg Q6HP PRN PO 07/22/25 19:45 07/23/25 06:01 650 MG Empaglifozin 25 mg DAILY PO 07/25/25 10:00 07/28/25 09:22 25 MG Losartan Potassium 100 mg DAILY PO 07/25/25 10:00 07/28/25 09:21 100 MG Gabapentin 300 mg BID PO 07/24/25 22:00 07/28/25 09:22 300 MG Ertapenem 1 gm/ Sodium Chloride 50 ml @ 100 mls/hr DAILY IV 07/27/25 10:00 07/28/25 09:21 100 MLS/HR Diagnostic Test (Pha) 1 strip ACHS 07/26/25 17:00 07/28/25 06:00 1 STRIP Insulin Human Regular AC SC 07/26/25 17:00 07/28/25 06:02 4 UNITS Insulin Human Regular HS SC 07/26/25 22:00 07/27/25 21:37 3 UNITS Dextrose 50 ml UD PRN IV 07/26/25 16:45 Lactulose 30 ml BIDPRN PRN PO 07/27/25 23:30 07/27/25 23:30 30 ML Laboratory Results Laboratory Tests 07/23/25 03:36 07/26/25 05:29 Urinalysis Test 07/23/25 09:20 Urine Color Yellow (Yellow) Urine Clarity Ex.turbid (Clear) Urine pH 5.5 (5.0-9.0) Urine Specific [place] 1.016 (1.001-1.035) Urine Protein 1+ (Negative) H Urine Ketones Negative (Negative) Urine Blood 3+ /uL (Negative) H Urine Nitrite 2+ (Negative) H Urine Bilirubin Negative (Negative) Urine Urobilinogen Normal mg/dL (Negative) Urine Leukocyte Esterase 3+ /uL (Negative) Urine RBC 48 /hpf (0 - 4) Urine WBC Clumps Present /hpf (None Seen) Urine Microscopic WBC 2911 /HPF (0-5) H Urine Squamous Epithelial Cells Few /hpf (<5) Urine Bacteria None seen /hpf (None Seen) Urine Glucose 4+ mg/dL (Normal) H Microbiology Microbiology Date/Time Source Procedure Growth Status 07/24/25 11:48 Blood Blood Culture - Preliminary NO GROWTH AFTER 72 HOURS OF INCUBATION. Resulted 07/23/25 09:20 Voided Urine Urine Culture - Final Complete Assessment/Plan Assessment/Plan Covering for Dr. Christianson 1. Sepsis secondary to urinary tract infection 2. Acute pyelonephritis with complicated UTI : Urine cultures growing ESBL E coli: DC vancomycin and Rocephin start Invanz 1 g IV daily for two weeks 3. Bilateral hydroureteronephrosis with urinary retention 4. Fevers chills dysuria secondary to symptomatic UTI 5. Leukocytosis likely reactive 6. Diabetes mellitus type 2 7. Hypertension 8. Gram negative bacteremia, repeat blood cultures negative -patient feels better and wants to go home Discharge canceled as urine showing ESBL E coli and started on Invanz [place]off [phone] at bedside Patient only has emergency [facility] Plan discussed with: Patient Date of Service: Jul 28, 2025 Billing Provider: MARILU HOOD MD Common Visit Codes: [id number] INP/OBS CARE(HIGH) MARILU HOOD MD Jul 28, 2025 09:31
[2025-07-29 01:00] VITALS: BP 99/52; PULSE 78; RESP 16; TEMP 98.2; O2SAT 92
[2025-07-29 04:40] VITALS: BP 118/74; PULSE 89; RESP 16; TEMP 98.1; O2SAT 93
--- NOTE | 2025-07-29 08:34 | DVHPN2 ---
Reviewed: Care Plan, H&P, Labs, Medications, Previous Orders, Radiology Changes from previous H/P or p: No Changes Objective Vitals Vital Signs Date Time Temp Pulse Resp B/P (MAP) Pulse Ox O2 Delivery O2 Flow Rate FiO2 07/29/25 04:40 98.1 89 16 118/74 (89) 93 98.1 07/28/25 20:00 Room Air* 0 21 Intake/Output Intake and Output 07/29/25 07:00 Intake Total 1680 ml Balance 1680 ml Intake Oral 1630 ml IV Total 50 ml # Voids 11 # Bowel Movements 4 Medications Current Medications Medications Dose Ordered Sig/Roxi Route Start Time Stop Time Status Last Admin Dose Admin Dextrose 50 ml UD PRN IV 07/22/25 19:45 Cancel Acetaminophen/ Hydrocodone Bitart 1 tab Q4HP PRN PO 07/22/25 19:45 07/23/25 21:16 1 TAB Ondansetron HCl 4 mg Q4HP PRN IV 07/22/25 19:45 Acetaminophen 650 mg Q6HP PRN PO 07/22/25 19:45 07/23/25 06:01 650 MG Empaglifozin 25 mg DAILY PO 07/25/25 10:00 07/28/25 09:22 25 MG Losartan Potassium 100 mg DAILY PO 07/25/25 10:00 07/28/25 09:21 100 MG Gabapentin 300 mg BID PO 07/24/25 22:00 07/28/25 21:11 300 MG Ertapenem 1 gm/ Sodium Chloride 50 ml @ 100 mls/hr DAILY IV 07/27/25 10:00 07/28/25 09:21 100 MLS/HR Diagnostic Test (Pha) 1 strip ACHS 07/26/25 17:00 07/29/25 06:00 1 STRIP Insulin Human Regular AC SC 07/26/25 17:00 07/29/25 06:00 8 UNITS Insulin Human Regular HS SC 07/26/25 22:00 07/28/25 21:00 4 UNITS Dextrose 50 ml UD PRN IV 07/26/25 16:45 Lactulose 30 ml BIDPRN PRN PO 07/27/25 23:30 07/27/25 23:30 30 ML Laboratory Results Laboratory Tests 07/23/25 03:36 07/26/25 05:29 Urinalysis Test 07/23/25 09:20 Urine Color Yellow (Yellow) Urine Clarity Ex.turbid (Clear) Urine pH 5.5 (5.0-9.0) Urine Specific [place] 1.016 (1.001-1.035) Urine Protein 1+ (Negative) H Urine Ketones Negative (Negative) Urine Blood 3+ /uL (Negative) H Urine Nitrite 2+ (Negative) H Urine Bilirubin Negative (Negative) Urine Urobilinogen Normal mg/dL (Negative) Urine Leukocyte Esterase 3+ /uL (Negative) Urine RBC 48 /hpf (0 - 4) Urine WBC Clumps Present /hpf (None Seen) Urine Microscopic WBC 2911 /HPF (0-5) H Urine Squamous Epithelial Cells Few /hpf (<5) Urine Bacteria None seen /hpf (None Seen) Urine Glucose 4+ mg/dL (Normal) H Microbiology Microbiology Date/Time Source Procedure Growth Status 07/24/25 11:48 Blood Blood Culture - Preliminary NO GROWTH AFTER 72 HOURS OF INCUBATION. Resulted 07/23/25 09:20 Voided Urine Urine Culture - Final Complete Labs and/or images reviewed: Labs reviewed by me, Image(s) reviewed by me Assessment/Plan Assessment/Plan Covering for Dr. Christianson 1. Sepsis secondary to urinary tract infection 1, b bacteremia with ESBL E coli 2. Acute pyelonephritis with complicated UTI : Blood cultures growing ESBL E coli: Invanz 1 g IV daily for two weeks 3. Bilateral hydroureteronephrosis with urinary retention 4. Fevers chills dysuria secondary to symptomatic UTI 5. Leukocytosis likely reactive 6. Diabetes mellitus type 2 7. Hypertension Patient has ESBL E coli in the blood. Treated with Invanz 1 g IV daily . Will be discharged home on home health for Invanz 1 g IV daily for 10 more days. Explained to the patient with the help of sign language translator Ophelia. [place] [phone] at bedside Plan discussed with: Patient My Orders Orders - MARILU HOOD MD Procedure Category Date Status Time * Hand Glass Cutter CONS 07/29/25 Transmitted Consult Refer To Home Health [facility] 07/29/25 In Process 08:28 Insert Midline ORDERS 07/29/25 Transmitted 08:28 Discharge DISCHARGE 07/29/25 Verified 08:31 Date of Service: Jul 29, 2025 Billing Provider: MARILU HOOD MD Common Visit Codes: [id number] DISCH DAY >30min MARILU HOOD MD Jul 29, 2025 08:34
[2025-07-29 09:00] VITALS: BP 116/76; PULSE 84; RESP 12; TEMP 98.1; O2SAT 96
[2025-07-29 12:35] VITALS: BP 122/80; PULSE 64; RESP 18; TEMP 97.5; O2SAT 96
[2025-07-29 16:41] VITALS: BP 113/64; PULSE 74; RESP 16; TEMP 97.3; O2SAT 95
== END 2025-07-29 17:51 | disposition home health service (06) | DRG 720 ==
LOC: ER 15:00 → OVERFLOW 19:31 → CENTRAL 07-23 18:10
PROVIDERS: ADMIT Family Medicine; ATTEND Family Medicine
PROC: 05HD33Z Insertion of Infusion Device into Right Cephalic Vein, Percutaneous Approach (ICD-10-PCS; principal; 2025-07-29)
PROC: B54MZZA Ultrasonography of Right Upper Extremity Veins, Guidance (ICD-10-PCS; 2025-07-29)
DX: A41.51 Sepsis due to Escherichia coli [E. coli] (principal); N17.0 Acute kidney failure with tubular necrosis; E87.20 Acidosis, unspecified; E11.9 Type 2 diabetes mellitus without complications; N13.6 Pyonephrosis; I10 Essential (primary) hypertension; Z16.12 Extended spectrum beta lactamase (ESBL) resistance
CPT/HCPCS: 36415; 74176; 80048; 80053; 80202; 81001; 82565; 82962; 83605; 85025; 87040; 87077; 87086; 87186; G0378; J1335; J1815; J2405; J2543

== ENCOUNTER 2025-08-08 17:22 | Emergency (ER) | payer MEDICAID ==
[~2025-08-08] VITALS: Ht 162.6 cm; Wt 65.0 kg
[~2025-08-08 17:22] MED LIST changes: -BACDST PO; +CIPR-173 PO; +EMPA1TAB5 PO; +LOSA-535 PO
[2025-08-08 18:01] VITALS: BP 104/62; PULSE 89; RESP 17; TEMP 97; O2SAT 94
--- NOTE | 2025-08-09 11:22 | ED.PDOC ---
History of Present Illness HPI Comments A 69 YEAR OLD FEMALE PRESENTS TO THE ED WITH COMPLAINT OF MID LINE REMOVAL. PATIENT STATES SHE HAS HAD A MID LINE IN PLACE FOR THE PAST 10 DAYS AND FINISHED HER ANTIBIOTIC TREATMENT TODAY. PATIENT WAS INFORMED THAT SHE COULD HAVE MID LINE REMOVED TODAY IN HIS HERE IN THE ED AT THIS TIME TO HAVE THIS MID LINE REMOVAL PATIENT DENIES FEVER, CHILLS, SHORTNESS OF BREATH, CHEST PAIN, ABDOMINAL PAIN, NAUSEA, VOMITING, HEADACHE, OR OTHER COMPLAINTS. NO OTHER SYMPTOMS OR MODIFYING FACTORS AT THIS TIME. PATIENT IS ALERT, ORIENTED X 4, AND HAS STEADY GAIT. Chief Complaint: Tube Replacement Time Seen by MD: 17:33 Reviewed Notes: Nurses Notes, Medications, Allergies Allergies: Coded Allergies: NO KNOWN ALLERGIES (Unverified , 07/11/25) Home Meds Active Scripts Ciprofloxacin Hcl (Cipro) 500 Mg Tab, 1 TAB PO BID, #20 TAB Prov:MARILU HOOD MD 07/26/25 Gabapentin (Gabapentin) 300 Mg Cap, 300 MG PO Q6HP PRN, #60 CAP Prov:ALONA YE MD 07/11/25 Ondansetron Odt 4MG Tab (ZOFRAN PO) 4 Mg Tb, 4 MG PO Q6HP PRN, #30 TAB ODT TAB-DISSOLVE IN MOUTH, THEN SWALLOW Prov:ALONA YE MD 07/11/25 Metformin Hydrochloride (Metformin Hcl) 1,000 Mg Tab, 1 TAB PO BID for 90 Days, #180 TAB 5 Refills Prov:ALONA YE MD 07/11/25 Reported Medications Empagliflozin-Linagliptin (Glyxambi 25-5 mg) 1 Tab Tab, 1 TAB PO, TAB 07/23/25 Losartan Potassium (Losartan Potassium) 100 Mg Tab, 1 TAB PO DAILY, #30 TAB 5 Refills 07/23/25 Information Source: Patient Mode of Arrival: Wheelchair Severity: None Timing: Days Duration: Since onset, Days Prehospital treatment: None Medication Refill: For: Other (MIDLINE REMOVAL) Past Medical History PAST MEDICAL HISTORY: DM Surgical History: Denies all surgeries S[employer]ER History: Denies all SAMPLE [employer] MA[employer]ER Hx Family History Family History: Reviewed,noncontributory to illness Social History Smoker: Non-Smoker Alcohol: Denies ETOH Use Drugs: Denies Drug Use Lives In: Home Constitutional: denies: chills, diaphoresis, fatigue, fever, malaise, sweats, weakness, others EENTM: denies: blurred vision, double vision, ear bleeding, ear discharge, ear drainage, ear pain, ear ringing, eye pain, eye redness, hearing loss, mouth pain, mouth swelling, nasal discharge, nose bleeding, nose congestion, nose pain, photophobia, tearing, throat pain, throat swelling, voice changes, others Respiratory: denies: cough, hemoptysis, orthopnea, SOB at rest, shortness of breath, SOB with excertion, stridor, wheezing, others Cardiovascular: denies: chest pain, dizzy spells, diaphoresis, Dyspnea on exertion, edema, irregular heart beat, left arm pain, lightheadedness, palpitations, PND, syncope, others Gastrointestinal: denies: abdomen distended, abdominal pain, blood streaked bowels, constipated, diarrhea, dysphagia, difficulty swallowing, hematemesis, melena, nausea, poor appetite, poor fluid intake, rectal bleeding, rectal pain, vomiting, others Genitourinary: denies: abnormal vagina bleeding, burning, dyspareunia, dysuria, flank pain, frequency, hematuria, incontinence, pain, , vagina discharge, urgency, others Neurological: denies: dizziness, fainting, headache, left sided numbness, left sided weakness, numbness, paresthesia, pre-existing deficit, right sided numbness, right sided weakness, seizure, speech problems, tingling, tremors, wea kness, others Musculoskeletal: denies: back pain, gout, joint pain, joint swelling, muscle pain, muscle stiffness, neck pain, others Integumetry: denies: bruises, change in color, change in hair/nails, dryness, l aceration, lesions, lumps, rash, wounds, others Allergic/Immunocompromised: denies: Difficulty Healing, Frequent Infections, Hives, Itching, others Hematologic/Lymphatic: denies: anemia, blood clots, easy bleeding, easy bruising, swollen glands, others Endocrine: denies: excessive hunger, excessive sweating, excessive thirst, excessive urination, flushing, intolerance to cold, intolerance to heat, unexplained weight gain, unexplained weight loss, others Psychiatric: denies: anxiety, bipolar disorder, depression, hopeless, panic disorder, schizophrenia, sleepless, suicidal, others All Other Systems: Reviewed and Negative Physical Exam General Appearance: No Apparent Distress, Normal HEENT: Normal ENT Inspection, PERRL/EOMI, Pharynx Normal, TMs Normal Neck: Full Range of Motion, Non-Tender, Normal, Normal Inspection Respiratory: Chest Non-Tender, Lungs Clear, No Accessory Muscle Use, No Respiratory Distress, Normal Breath Sounds Cardiovascular: No Edema, No JVD, No Murmur, No Gallop, Normal Peripheral Pulses, Regular Rate/Rhythm Breast Exam: Deferred Gastrointestinal: No Organomegaly, Non Tender, No Pulsatile Mass, Normal Bowel Sounds, Soft Genitalia: Deferred Pelvic: Deferred Rectal: Deferred Extremities: No calf tenderness, Normal capillary refill, Normal inspection, Normal range of motion, Non-tender, No pedal edema, Other (PICC LINE ON RIGHT UPPER ARM, NO SKIN REDNESS AND INFECTION SIGNS. ) Musculoskeletal : Apperance: Normal Neurologic: Alert, mechanical pencils assembler II-XII nml as Tested, No Motor Deficits, Normal Affect, Normal Mood, No Sensory Deficits Cerebellar Function: Normal Reflexes: Normal Skin: Dry, Normal Color, Warm Peripheral Pulses: 2+ carotid (R), 2+ carotid (L) Lymphatic: No Adenopathy Was a procedure done? Was a procedure done?: No Differential Dx Considerations may include: PICC LINE REMOVAL, MIDLINE REMOVAL, WOUND CHECK, X-Ray, Labs, Meds, VS Vital Signs Date Time Temp Pulse Resp B/P (MAP) Pulse Ox O2 Delivery O2 Flow Rate FiO2 08/08/25 18:01 97.0 89 17 104/62 (76) 94 97.0 08/08/25 18:01 89 17 94 Room Air 08/08/25 17:28 97.0 89 17 104/62 94 97.0 X-Ray, Labs, Meds, VS Comment EXTERNAL MEDICAL RECORDS REVIEWED: [NONE] INDEPENDENT HISTORIANS: [NONE] SOCIAL DETERMINANTS OF HEALTH: [NONE] LABS ORDERED: NONE REVIEWED AND INTERPRETED RESULTS: NONE IMAGING ORDERED: NONE TREATMENTS ORDERED: MIDLINE WAS REMOVED. PROCEDURES PERFORMED: NONE CRITICAL CARE TIME: NONE I HAVE DISCUSSED THE PATIENT WITH THE ATTENDING PHYSICIAN DR. SUE AND HE AGREES WITH THE PATIENT'S PLAN OF CARE AND DISPOSITION. BASED ON HISTORY OF PRESENT ILLNESS, AND PHYSICAL EXAM, PATIENT WILL BE DISCHARGED HOME. SHARED DECISION MAKING: PATIENT INSTRUCTED TO FOLLOW UP WITH PRIMARY CARE PROVIDER IN 1-2 DAYS FOR RE-EVALUATION OF SYMPTOMS. PATIENT VERBALIZES UNDERSTANDING TO RETURN TO ED FOR NEW OR WORSENING SYMPTOMS OR IF FOLLOW UP WITH PCP CANNOT BE OBTAINED. PATIENT FEELS COMFORTABLE GOING HOME AT THIS TIME. ALL QUESTIONS ADDRESSED AT TIME OF DISCHARGE. Time of 1ST Reevaluation: 18:06 Reevaluation 1ST: Improved Patient Education/Counseling: Diagnosis, Treatment, Need For Follow Up Family Education/Counseling: Diagnosis, Treatment, Need For Follow Up Medical Screening: No EMC Exist At This Time SEPSIS Sepsis Screen Date sepsis recognized/suspect: Aug 08, 2025 Time Sepsis recognized/suspect: 1728 Recent Procedure: No On Antibiotic Therapy: No Respiratory Rate >20: No Heart Rate >90: No Temp<36 C (96.8 F) or >38.3 C: No SBP <90 or MAP <65 mmHG: No New Acute Mental Status Change: No Is the patient on CPAP, BIPAP,: No Vital Signs Date Time Temp Pulse Resp B/P (MAP) Pulse Ox O2 Delivery O2 Flow Rate FiO2 08/08/25 18:01 97.0 89 17 104/62 (76) 94 97.0 08/08/25 18:01 89 17 94 Room Air 08/08/25 17:28 97.0 89 17 104/62 94 97.0 Departure 1 Departure Time of Disposition: 18:06 Impression: Primary Impression: PICC (peripherally inserted central catheter) removal Disposition: 01 HOME / SELF CARE / HOMELESS Condition: Stable Additional Instructions: FOLLOW-UP WITH PCP IN 1 TO 2 DAYS. RETURN TO ED FOR ANY NEW OR WORSENING SYMPTOMS. Discharged With: Self Critical Care Note Critical Care Time?: No Stability Stability form required: No I personally scribed for CHAS ROPER ([email or web address]) on 08/08/25 at 18:00. Electronically submitted by Arley Younger ([email or web address]). CHAS ROPER Aug 08, 2025 18:00
== END 2025-08-08 18:04 | disposition home or self-care (01) ==
LOC: ER 17:24
DX: Z45.2 Encounter for adjustment and management of vascular access device (principal); E11.9 Type 2 diabetes mellitus without complications; Z79.899 Other long term (current) drug therapy